=== PATIENT | female | born 1965 | race Caucasian/White ===

== ENCOUNTER 2023-12-10 11:51 | Emergency (ER) | payer MEDICARE, OTHER ==
[~2023-12-10] VITALS: Ht 172.7 cm; Wt 68.0 kg
[2023-12-10 13:16] LABS: BASOPHILS ABSOLUTE AUTO 0.04 K/mm3 (0.00-0.23); BASOPHILS PERCENT AUTO 1 % (0-2); EOSINOPHILS ABSOLUTE AUTO 0.15 K/mm3 (0.00-0.68); EOSINOPHILS PERCENT AUTO 2 % (0-6); Hematocrit 35.5 % (33.0-51.0); Hemoglobin 11.5 g/dL (11.5-16.0); IMMATURE GRAN ABSOLUTE AUTO 0.02 K/mm3 (0.00-0.10); IMMATURE GRAN PERCENT AUTO 0 % (0-1); LYMPHOCYTES ABSOLUTE AUTO 4.29 K/mm3 (0.84-5.20); LYMPHOCYTES PERCENT AUTO 49 % (21-46); MONOCYTES ABSOLUTE AUTO 0.49 K/mm3 (0.16-1.47); MONOCYTES PERCENT AUTO 6 % (4-13); Mean Corpuscular HGB 27.3 pg (26.0-34.0); Mean Corpuscular HGB Conc 32.4 g/dL (31.5-36.5); Mean Corpuscular Volume 84 fL (80-100); Mean Platelet Volume 10.2 fL (9.1-12.4); NEUTROPHILS PERCENT AUTO 43 % (41-73); Platelet Count 191 K/mm3 (150-400); RDW Coefficient Variation 19.7 % (11.7-14.2); RDW Standard Deviation 59.9 fL (35.1-46.3); Red Blood Cell Count 4.22 M/mm3 (3.80-5.20); White Blood Cell Count 8.79 K/mm3 (4.00-11.30)
[2023-12-10 13:23] LABS: Bilirubin, Total 0.6 mg/dL (0.1-1.0); Bun/Creatinine Ratio 16.7 (12.0-20.0); Calcium, Blood 8.4 mg/dL (8.5-10.1); Creatinine, Blood 0.54 mg/dL (0.40-1.00); Globulin, Blood 2.9 g/dL (2.2-4.0); Potassium, Blood 3.5 mmol/L (3.5-5.5); Total Protein, Blood 5.9 g/dL (6.4-8.2)
[2023-12-10 18:00] LABS: Source, Urine Clean Catch
[2023-12-10 18:13] LABS: Influenza A, PCR NEGATIVE (NEGATIVE); Influenza B, PCR NEGATIVE (NEGATIVE); Resp Syncytial Virus, PCR NEGATIVE (NEGATIVE); SARS-Cov-2 (COVID-19) PCR, MMC NEGATIVE (NEGATIVE)
[2023-12-10 18:20] LABS: Magnesium, Blood 1.9 mg/dL (1.6-2.4)
[2023-12-10 18:22] LABS: Thyroid Stimulating Hormone 2.55 uIU/mL (0.360-4.800)
[2023-12-10 18:27] LABS: Appearance, Urine Clear (Clear); Bilirubin, Urine Neg (Neg); Blood, Urine 2+ (Neg); Color, Urine Yellow (P-Yellow); Glucose Qualitative, Urine Neg (Neg); Ketones, Urine Neg (Neg); Leukocyte Esterase, Urine Neg (Neg); Nitrite, Urine Neg (Neg); Protein, Urine 1+ (Neg); Urobilinogen, Urine 1+ (Normal)
[2023-12-10 18:37] LABS: Bacteria Few /hpf; Calcium Oxalate Crystals Few /hpf; Mucus Mod (0-Heavy); Squamous Epithelial Cells Few /hpf (Few); White Blood Cells, Urine 0-2 /hpf (0-5)
[2023-12-10 21:00] VITALS: BP 148/69
[2023-12-10] MEDS ORDERED: MECL25 PO (21:04)
[2023-12-10] MEDS ORDERED: LIDO700A20 TOP (21:04)
[2023-12-10] MEDS ORDERED: CYCL10 PO (21:04)
== END 2023-12-10 21:28 | disposition home or self-care (01) ==
LOC: ER 11:51
PROVIDERS: Physician Assistant; Student in an Organized Health Care Education/Training Program
DX: R42 Dizziness and giddiness (principal); R07.89 Other chest pain; M25.551 Pain in right hip; R30.0 Dysuria
CPT/HCPCS: 0241U; 71046; 80053; 81001; 83690; 83735; 84443; 84484; 85025; 93005; 93010; 96360; 96361; 99285-25; A9270; J7030

== ENCOUNTER 2024-01-06 06:21 | Day surgery (SDC) | payer MEDICARE, OTHER ==
[~2024-01-06] VITALS: Ht 17.8 cm; Wt 66.2 kg
[2024-01-06] VITALS (24 sets, daily range): BP systolic 117–168; BP diastolic 61–95
[~2024-01-06 06:21] MED LIST: Acetaminophen 500 MG Tab PO SCH; Amitriptyline H50 MG PO; CYCL10 PO; CeFAZolin Sodium 2,000 MG in NS 50 ML IV SCH; Chlorhexidine Mouth Care 15 ML UDC MT SCH; ESTRADIOL PO; FOLI1 PO; LIDO700A20 TOP; Lactated Ringer's 1,000 ML IV SCH; MECL25 PO; METTREX2.5 PO; OMEP20ER PO; OxyCODONE HCL 10 MG TABCR PO SCH; SIMPONI100 MG/1 M; VITAMIN D310 MC4 PO; Vancomycin HCL 1,000 MG in NS 100 ML IV SCH; Voltaren100 GM TOP
[2024-01-06] MEDS ORDERED: Ropivacaine 0.5% HCl/Pf 67.75 MG,EPINEPHrine HCL 0.25 MG,Ketorolac Tromethamine 15 MG,C... INFIL SCH (06:50)
[2024-01-06] MEDS ORDERED: TRANEXAMIC ACID IV SCH (06:50)
[2024-01-06] MEDS ORDERED: NS IV SCH (06:50)
[2024-01-06] MEDS ORDERED: Bisacodyl 10 MG Supp PR PRN (06:55)
[2024-01-06] MEDS ORDERED: propofoL 40 ML IV ONE (06:58)
[2024-01-06] MEDS ORDERED: Midazolam HCl 1MG / ML 2ML Vial ONE (06:59)
[2024-01-06] MEDS ORDERED: FentaNYL Citrate 50 MCG/ML 2 ML Injection ONE (06:59)
[2024-01-06] MEDS ORDERED: FLU VACC QS2023-24(6MOS UP)/PF 60 MCG/0.5 ML SYRINGE IM SCH (07:00)
[2024-01-06] MEDS ORDERED: DiphenhydrAMINE HCL 25 MG Cap PO PRN (07:00)
[2024-01-06] MEDS ORDERED: HYDROmorphone HCl/Pf 1MG SYR IV PRN (07:00)
[2024-01-06] MEDS ORDERED: Lactated Ringer's 1,000 ML IV SCH (07:00)
[2024-01-06] MEDS ORDERED: Bupivacaine 0.5% HCl 5 MG/ML 30MLVIAL ONE (07:00)
[2024-01-06] MEDS ORDERED: Ondansetron HCl 2 MG / ML 2ML Vial IV PRN (07:05)
[2024-01-06] MEDS ORDERED: Prochlorperazine Edisylate 10 mg Vial IV PRN (07:05)
[2024-01-06] MEDS ORDERED: Promethazine HCl 25 MG Tab PO PRN (07:05)
[2024-01-06] MEDS ORDERED: Magnesium Hydroxide Conc 10 ML UDC PO PRN (07:05)
[2024-01-06] MEDS ORDERED: OxyCODONE HCL 5 MG TAB PO PRN ×2 (07:05)
[2024-01-06] MEDS ORDERED: Metoclopramide HCl 5MG / ML 2ML Vial IV PRN ×2 (07:05→07:40)
[2024-01-06] MEDS ORDERED: ACTEMRA400 MG/20 IV (07:07)
--- NOTE | 2024-01-06 07:20 | NUR ---
PT IN SDS. Patient up to Ambulate independently. Gait steady. Surgical site prepped with 2% Chlorhexidine cloth wipe. History, Chart, Medications and Allergies reviewed before start of procedure.Lungs clear T/O to Auscultation. Patient confirms NPO status and agrees with scheduled surgery. Pre-Op teaching done. Pt verbalizes understanding. Patient reports completing Chlorhexadine shower X2 prior to admission to hospital. Pt's wedding ring in pocket of coat in personal belongings bag taken to room 221. Pt has bruises on R forearm and R eye due to fall 2 weeks ago, Dr. León notified and assessed at bedside. No visible skin abrasions present around operative site. Pt's cane also taken to room 221. VSS.
[2024-01-06] MEDS ORDERED: Dexamethasone Sod Phos 10 MG/ML 1ML VIAL ONE (07:31)
[2024-01-06] MEDS ORDERED: Ondansetron HCl 2 MG / ML 2ML Vial ONE (07:31)
[2024-01-06] MEDS ORDERED: Morphine Sulfate 4 MG/1 ML Injection IV PRN (07:40)
[2024-01-06] MEDS ORDERED: Labetalol HCL 5 MG/ML 4ML Injection (Single Dose) IV PRN (07:40)
[2024-01-06] MEDS ORDERED: FentaNYL Citrate 50 MCG/ML 2 ML Injection IV PRN ×2 (07:40)
[2024-01-06] MEDS ORDERED: Acetaminophen 500 MG Tab PO SCH (08:00)
[2024-01-06] MEDS ORDERED: Docusate Sodium 100 MG Cap PO SCH (09:00)
[2024-01-06] MEDS ORDERED: Ketorolac Tromethamine 30mg Vial ONE (10:52)
--- NOTE | 2024-01-06 13:08 | NUR ---
"Spiritual Care | Pt. Request Pt. is awake and welcomes my visit. Pt, is pleasant and Pts. sister is at bedside. Facilitated a life review and considered matters of izabela and belief. Listen with interest and empathy and consider matters of izabela and belief. Pt. verbalized grief over the recent passing of her . Listen with a calming presence. Pt. didsplayed evidence of having been comforted. Prayed with Pt. and sister. Both verbalized gratitude for the spiritual care visit."
[2024-01-06] MEDS ORDERED: CeFAZolin Sodium 2,000 MG in NS 50 ML IV SCH (15:45)
[2024-01-06] MEDS ORDERED: Ketorolac Tromethamine 15mg Vial IV SCH (18:00)
[2024-01-06] MEDS ORDERED: Vancomycin HCL 1,000 MG in NS 100 ML IV SCH (19:00)
--- NOTE | 2024-01-06 20:06 | NUR ---
SHIFT SUMMARY S/P R MAALCHI, DRESSING CDI, TEDS/SCDS, ICED AND ELEVATED AT REST, UP TO CHAIR. A&OX4, VSS/RA, YOGI PO, VOIDING, AMB SBA FWW/GB, PAIN MANAGED. REPORT TO JOHN FONG.
[2024-01-07 00:46] VITALS: BP 153/82
[2024-01-07 04:17] VITALS: BP 151/83
[2024-01-07 04:44] LABS: Hematocrit 27.4 % (33.0-51.0); Hemoglobin 8.7 g/dL (11.5-16.0); Mean Corpuscular HGB 28.3 pg (26.0-34.0); Mean Corpuscular HGB Conc 31.8 g/dL (31.5-36.5); Mean Corpuscular Volume 89 fL (80-100); Mean Platelet Volume 9.7 fL (9.1-12.4); Platelet Count 194 K/mm3 (150-400); RDW Coefficient Variation 18.9 % (11.7-14.2); RDW Standard Deviation 61.6 fL (35.1-46.3); Red Blood Cell Count 3.07 M/mm3 (3.80-5.20); White Blood Cell Count 15.87 K/mm3 (4.00-11.30)
[2024-01-07 04:59] LABS: Calcium, Blood 8.1 mg/dL (8.5-10.1); Creatinine, Blood 0.63 mg/dL (0.40-1.00); Magnesium, Blood 2.2 mg/dL (1.6-2.4); Potassium, Blood 3.6 mmol/L (3.5-5.5)
--- NOTE | 2024-01-07 05:03 | NUR ---
SHIFT SUMMARY NO ACUTE CHANGES TO REPORT OVERNIGHT. PT HAS RESTED T/O THE SHIFT. SHE HAS BEEN UP AND AMBULATING, VOIDING AND TOLERATING PO INTAKE. DRESSING C/D/I. POLAR PACK IN PLACE. VITALS ARE STABLE. PLAN IS FOR DISCHARGE TODAY.
[2024-01-07 05:43] LABS: BAND PERCENT MAN 1 % (0-8); BASOPHILS PERCENT MAN 0 % (0-2); EOSINOPHILS PERCENT MAN 0 % (0-6); LYMPHOCYTES % ATYPICAL MANUAL 1 % (0-0); LYMPHOCYTES ABSOLUTE MAN 9.83 K/mm3 (0.84-5.20); LYMPHOCYTES PERCENT MAN 61 % (21-46); MONOCYTES ABSOLUTE MAN 0.63 K/mm3 (0.16-1.47); MONOCYTES PERCENT MAN 4 % (4-13); NEUTROPHILS ABSOLUTE MAN 5.39 K/mm3 (1.96-9.15); SEG NEUTROPHILS PERCENT MAN 33 % (41-73); TOTAL CELLS COUNTED 100
[2024-01-07 07:28] VITALS: BP 158/75
[2024-01-07] MEDS ORDERED: Aspirin 81 MG Chew PO SCH (09:00)
[2024-01-07] MEDS ORDERED: Trimethoprim/Sulfamethoxazole DS Tab PO SCH (09:00)
[2024-01-07] MEDS ORDERED: Folic Acid 1 MG TAB PO SCH (09:00)
[2024-01-07] MEDS ORDERED: Cholecalciferol 400 unit Tab PO SCH (09:00)
[2024-01-07] MEDS ORDERED: SULTRIDS PO (09:35)
[2024-01-07] MEDS ORDERED: OXYC5 PO (09:36)
[2024-01-07] MEDS ORDERED: Aspir 8181 MG PO (09:36)
--- NOTE | 2024-01-07 12:11 | NUR ---
DISCHARGE SUMMARY POD1 R MALACHI, AQUACEL DRESSING CDI, TEDS ON. A&OX4, VSS/RA, YOGI PO, VOIDING, AMB FWW/GB, PAIN MANAGED, IV DC'D. DC INS PROVIDED. PT REP UNDERSTANDING THOSE INSTRUCTIONS. LEFT FLOOR VIA WC WITH DOPER TO GO HOME WITH SISTER WITH ALL PERSONAL POSSESSIONS INCLUDING DC PACKET, POLAR BENJAMIN, AQUACEL DRESSINGS.
== END 2024-01-07 10:24 | disposition home or self-care (01) ==
LOC: SURS 06:21 → ORSCMMR 06:21 → SURS 10:53 → ORSCMMR 01-07 10:24
PROVIDERS: Orthopaedic Surgery
PROC: 0SR90JA Replacement of Right Hip Joint with Synthetic Substitute, Uncemented, Open Approach (ICD-10-PCS; principal; 2024-01-06 07:30)
DX: M16.11 Unilateral primary osteoarthritis, right hip (principal); Z96.642 Presence of left artificial hip joint; I10 Essential (primary) hypertension; E78.5 Hyperlipidemia, unspecified; F41.9 Anxiety disorder, unspecified; F32.A Depression, unspecified; Z79.899 Other long term (current) drug therapy
CPT/HCPCS: 36415; 72170; 80048; 83735; 85025; 94760; 97110; 97116; 97162; 97165; 97530; 97535; A9270; C1713; C1776; J0171; J0690; J0735; J1100; J1885; J2250; J2405; J2704; J2795; J3010; J3370; J7120